=== PATIENT | male | born 1975 | race Caucasian/White ===

== ENCOUNTER 2023-12-04 10:15 | Outpatient (REF) | payer BC, SELFPAY ==
--- NOTE | ~2023-12-04 | XR_ITS ---
EXAMINATION: XR CHEST CLINICAL INFORMATION: Chronic cough. COMPARISON: 12/05/2021. TECHNIQUE: 2 views of the chest were obtained. FINDINGS: Lung volumes are low. There is no gross pneumothorax. Heart size within normal limits. Mild degenerative changes in the thoracic spine. No focal consolidation to suggest pneumonia. No pleural effusion. XR/XR chest 2V IMPRESSION: No evidence of pneumonia. Low lung volumes.
[2023-12-04 11:09] LABS: MANUAL DIFF FLAG NO
[2023-12-04 11:45] LABS: Basophils Percent Auto 0.6 % (0-2); Eosinophils Absolute Auto 0.2 X10*3/uL (0.0-0.4); Eosinophils Percent Auto 2.4 % (0-4); Hemoglobin 16.4 g/dl (14.0-18.0); Imm Gran Abs Auto 0.01 X10*3/uL (0.00-0.03); Imm Gran Pct Auto 0.2 % (0.0-0.4); Lymphocytes Absolute Auto 1.2 X10*3/uL (1.2-4.9); Lymphocytes Percent Auto 18.4 % (20-40); Mean Corpuscular HGB Conc 33.5 g/dl (31.0-36.0); Mean Corpuscular Hemoglobin 27.8 pg (27.0-33.0); Mean Corpuscular Volume 83.2 fL (80.0-98.0); Mean Platelet Volume 9.3 fL (9.4-12.4); Monocytes Absolute Auto 0.4 X10*3/uL (0.1-1.2); Monocytes Percent Auto 6.2 % (2-11); Neutrophils Absolute Auto 4.7 x10*3/uL (2.0-8.3); Neutrophils Percent Auto 72.2 % (45-73); Platelet Count 223 X10*3/uL (160-400); Red Blood Count 5.89 X10*6/uL (4.60-5.80); Red Cell Distribution Width 13.8 % (11.0-16.0); White Blood Count 6.6 X10*3/uL (4.8-10.8)
[2023-12-04 12:21] LABS: Erythrocyte Sedimentation Rate 23 MM/HR (0-15)
[2023-12-06 19:24] LABS: Immunoglobulin E 28 kU/L (<OR=114)
[2023-12-06 22:09] LABS: IgA 298 mg/dL (47-310); IgG 1200 mg/dL (600-1640); IgM 161 mg/dL (50-300)
[2023-12-11 13:37] LABS: Asperg fumigatus Precip Abs NEGATIVE (NEGATIVE); Micropoly faeni Abs NEGATIVE (NEGATIVE); Pigeon serum Abs NEGATIVE (NEGATIVE); Saccharo pora viridis Abs NEGATIVE (NEGATIVE); Thermo candidus Abs NEGATIVE (NEGATIVE); Thermoa vulgaris #1 NEGATIVE (NEGATIVE)
== END 2023-12-04 10:16 | disposition home or self-care (01) ==
LOC: HO.LAB 10:15
PROVIDERS: PCP Internal Medicine; Visit Provider Hospitalist
DX: R05.3 Chronic cough (principal); T78.40XA Allergy, unspecified, initial encounter; R91.8 Other nonspecific abnormal finding of lung field; J31.0 Chronic rhinitis
CPT/HCPCS: 36415; 71046; 82784; 82785; 85025; 85652; 86331; 86606; 86609

== ENCOUNTER 2023-12-04 10:15 | Outpatient (AMB) | payer BC, SELFPAY ==
[2023-12-04 10:21] VITALS: BP 124/78; PULSE 68; O2SAT 97; BMI 34.6
--- NOTE | 2023-12-04 10:21 | A.OFFVIS_ITS ---
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 The patient is a 48-year-old gentleman presenting with a chronic cough. The patient states that his cough started about 25 years ago. Typically a dry hacky cough. Throughout the years he is been evaluated for the cough without any significant resolution. He is tried nasal sprays for upper airway cough syndrome. He is tried Tessalon Perles without any significant relief. At times though depending on exposures and circumstances he may develop a flare up of his cough where he gets more congested with a deeper cough more in severity and frequency. The last time that it occurred over the fall the patient was placed on Pulmicort. Seems like it settle down the cough and the congestion. Ultimately his Pulmicort was increased further to 180. He recently had a viral syndrome and was not as bad. He also has a rescue inhaler uses as needed with partial response. Patient did have a chest x-ray which I personally reviewed bad in August 2023. Appeared that he has some bronchiectatic changes in the right lower lobe area. Also a bandlike atelectasis or opacity in the right upper lobe area. These abnormal findings that were not reported on the actual official reading. Therefore, have him repeat the x-ray to see if this areas have resolved. If the areas continue to be abnormal then will request a CT scan of the chest. In the meantime he has not had allergy testing or assessment of his immune system to make sure that we can try to find triggers for his chronic cough and likely a component of chronic bronchitis. The patient also has nasal congestion. The nasal sprays uses at times. He recently was prescribed a new spray. Based on his ongoing symptoms in the fact it has a component of and upper airway cough syndrome when start him on a 1st generation antihistamine along with Sudafed. He is going to monitor closely for any adverse effects specially high blood pressure. I am hoping that this will help him decrease his cough in order for him to break the cough cycle. The patient also needs to undergo pulmonary function studies to better address the question of underlying obstructive airway disease. Once he gets his blood work x-ray and PFTs he will follow-up again with pulmonary in order to review and to provide additional recommendations. [facility] Medical History (Updated 12/04/23 @ 13:13 by Negro Call MD) Chronic rhinitis Chronic cough Social History (Updated 12/04/23 @ 10:25 by BLADIMIR Alexandre) Patient Tobacco Use Status: Never used Tobacco Review of Systems Const Denies fever(s) ENT Reports nasal congestion, Reports nasal discharge and Reports post nasal drip Card Reports chest pain (right base) Resp Reports cough and Denies wheezing GI Reports no additional complaints Musc Reports no additional complaints Skin/Breast Denies rash Neuro Reports no additional complaints Ponce/Lymph Denies lymphadenopathy Aller/Immun Denies wheezing Physical Exam Vital Signs: Last Vital Signs Pulse 68 12/04/23 10:21 BP 124/78 12/04/23 10:21 Pulse Ox 97 12/04/23 10:21 Oxygen Delivery Method Room Air 12/04/23 10:21 BMI result Body Mass Index 34.6 Const General: comfortable HEENT General nose exam: Abnormal mucous membranes and turbinates present boggy Throat: Yes tonsils normal and Yes postnasal drainage Neck Neck: Yes supple Chest Chest palpation & inspection: normal inspection of the chest Resp Effort & Inspection: normal respiratory effort Auscultation: clear to auscultation bilaterally, no crackles, no rales, no rhonchi and no wheezes Cardio Heart sounds: S1 normal heart sound present and S2 normal heart sound present GI Palpation (GI): Soft to palpation Skin General skin exam: no rashes or lesions noted Extrem General: Yes no clubbing, cyanosis or edema Assessment & Plan Assessment & Plan (1) Chronic cough: Code(s): R05.3 - Chronic cough (2) Allergies: Code(s): T78.40XA - Allergy, unspecified, initial encounter Qualifiers: Encounter type: initial encounter Qualified Code(s): T78.40XA - Allergy, unspecified, initial encounter (3) Chronic rhinitis: Code(s): J31.0 - Chronic rhinitis Plan start Chlorphenaramine start pseudophed, monitor BP continue fluticasone nasal spray continue pulmicort SUHAIL as needed Bloodwork/allergy testing CXR, if abnormal will request a CT chest PFTs F/U in 2-3 months Orders: Orders XR chest 2V Today R05.3 - Chronic cough, T78.40XA - Allergy, unspecified, initial encounter Erythrocyte Sedimentation Rate Today R05.3 - Chronic cough, T78.40XA - Allergy, unspecified, initial encounter Complete Blood Count Auto Diff Today R05.3 - Chronic cough, T78.40XA - Allergy, unspecified, initial encounter Immunoglobulin E Today R05.3 - Chronic cough, T78.40XA - Allergy, unspecified, initial encounter Resp Allergy Profile Region I Today R05.3 - Chronic cough, R91.1 - Solitary pulmonary nodule, T78.40XA - Allergy, unspecified, initial encounter Hypersensitive Pneumonitis Prf Today R05.3 - Chronic cough, R91.8 - Other nonspecific abnormal finding of lung field, T78.40XA - Allergy, unspecified, initial encounter Immunoglobulins,IgG IgA IgM Today R05.3 - Chronic cough, T78.40XA - Allergy, unspecified, initial encounter Medications: New chlorpheniramine maleate 4 mg PO Q6H 30 days PRN 60 tabs 6RF cough pseudoephedrine HCl ER 120 mg PO Q12H 30 days 60 tabs 1RF Coding Level of Care Code New Pt Level 4 (32205) Diagnoses Chronic cough R05.3 Allergy, initial encounter T78.40XA Encounter type: initial encounter Chronic rhinitis J31.0 Time Spent (min) 40
== END 2023-12-04 10:54 | disposition home or self-care (01) ==
PROVIDERS: PCP Internal Medicine; Visit Provider Hospitalist
DX: R05.3 Chronic cough (principal); T78.40XA Allergy, unspecified, initial encounter; J31.0 Chronic rhinitis
CPT/HCPCS: 99204

== ENCOUNTER 2024-01-15 10:51 | Outpatient (REF) | payer BC, SELFPAY ==
[2024-01-15 08:26] VITALS: PULSE 82; RESP 16; O2SAT 100
--- NOTE | 2024-01-15 14:40 | PFT_ITS ---
Flows: FEV1: 89 % of predicted at 3.56 L FVC: 89 % of predicted at 4.50 L FEV1/FVC: 79 % Bronchodilator response: Absent Volumes: Total lung capacity: 87 % of predicted at 6.26 L Residual volume: 99 % of predicted at 1.76 L Slow vital capacity: 83 % of predicted at 4.50 L Expiratory reserve volume: 114 % of predicted at 1.69 L Diffusion capacity: Normal Impression: No obstructive or restrictive ventilatory defect. No bronchodilator response. Normal pulmonary function test. MTDD
== END 2024-01-15 10:52 | disposition home or self-care (01) ==
LOC: HO.RESP 10:51
PROVIDERS: PCP Nurse Practitioner; Visit Provider Hospitalist
DX: R06.00 Dyspnea, unspecified (principal); R05.3 Chronic cough
CPT/HCPCS: 94010; 94640; 94727; 94729

== ENCOUNTER → 2024-01-15 14:40 | Outpatient (BNV) | payer BC, SELFPAY | PROVIDERS: PCP Nurse Practitioner; Visit Provider Internal Medicine Pulmonary Disease | DX: R05.3 Chronic cough (principal) | CPT/HCPCS: 94060; 94727; 94729 ==

== ENCOUNTER 2024-02-12 08:45 | Outpatient (AMB) | payer BC, SELFPAY ==
[2024-02-12 08:52] VITALS: PULSE 69; O2SAT 98; BMI 34.4
--- NOTE | 2024-02-12 08:52 | MHC.OFFVIS ---
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 The patient states that his cough started about 25 years ago. Typically a dry hacky cough. Throughout the years he is been evaluated for the cough without any significant resolution. He is tried nasal sprays for upper airway cough syndrome. He is tried Tessalon Perles without any significant relief. At times though depending on exposures and circumstances he may develop a flare up of his cough where he gets more congested with a deeper cough more in severity and frequency. The last time that it occurred over the fall the patient was placed on Pulmicort. Seems like it settle down the cough and the congestion. Ultimately his Pulmicort was increased further to 180. He recently had a viral syndrome and was not as bad. He also has a rescue inhaler uses as needed with partial response. Patient did have a chest x-ray which I personally reviewed bad in August 2023. Appeared that he has some bronchiectatic changes in the right lower lobe area. Also a bandlike atelectasis or opacity in the right upper lobe area. These abnormal findings that were not reported on the actual official reading. Therefore, have him repeat the x-ray to see if this areas have resolved. If the areas continue to be abnormal then will request a CT scan of the chest. In the meantime he has not had allergy testing or assessment of his immune system to make sure that we can try to find triggers for his chronic cough and likely a component of chronic bronchitis. The patient also has nasal congestion. The nasal sprays uses at times. He recently was prescribed a new spray. Based on his ongoing symptoms in the fact it has a component of and upper airway cough syndrome when start him on a 1st generation antihistamine along with Sudafed. He is going to monitor closely for any adverse effects specially high blood pressure. I am hoping that this will help him decrease his cough in order for him to break the cough cycle. The patient also needs to undergo pulmonary function studies to better address the question of underlying obstructive airway disease. Once he gets his blood work x-ray and PFTs he will follow-up again with pulmonary in order to review and to provide additional recommendations. 02/12/2024 the patient is here for a pulmonary follow-up visit. Overall he is doing okay. Still continues with a cough. Slightly improved. Nonproductive in nature. Denies any significant shortness of breath. Denies any night sweats. He did have a chest x-ray demonstrating low lung volumes with some crowding of the vessels and some atelectasis. In addition to that he had PFTs. He had blood work without any significant explanation for the underlying cough. Will go ahead and request a CT scan of the chest at this time. The patient will continue with the current respiratory therapy. Follow-up in 6 months. [facility] Medical History (Updated 02/12/24 @ 09:10 by Negro Call MD) Standard chest x-ray abnormal Chronic rhinitis Chronic cough Social History (Updated 12/04/23 @ 10:25 by BLADIMIR Alexandre) Patient Tobacco Use Status: Never used Tobacco Review of Systems Const Denies fever(s) ENT Reports nasal congestion, Reports nasal discharge and Reports post nasal drip Card Reports chest pain (right base) Resp Reports cough and Denies wheezing GI Reports no additional complaints Musc Reports no additional complaints Skin/Breast Denies rash Neuro Reports no additional complaints Ponce/Lymph Denies lymphadenopathy Aller/Immun Denies wheezing Physical Exam Const General: comfortable HEENT General nose exam: Abnormal mucous membranes and turbinates present boggy Throat: Yes tonsils normal and Yes postnasal drainage Neck Neck: Yes supple Chest Chest palpation & inspection: normal inspection of the chest Resp Effort & Inspection: normal respiratory effort Auscultation: no crackles, no rales, no rhonchi, no wheezes and diminished lung sounds Cardio Heart sounds: S1 normal heart sound present and S2 normal heart sound present GI Palpation (GI): Soft to palpation Skin General skin exam: no rashes or lesions noted Extrem General: Yes no clubbing, cyanosis or edema Assessment & Plan Assessment & Plan (1) Chronic cough: Code(s): R05.3 - Chronic cough Category: Medical (2) Allergies: Code(s): T78.40XA - Allergy, unspecified, initial encounter Category: Medical Qualifiers: Encounter type: initial encounter Qualified Code(s): T78.40XA - Allergy, unspecified, initial encounter (3) Chronic rhinitis: Code(s): J31.0 - Chronic rhinitis Category: Medical (4) Standard chest x-ray abnormal: Code(s): R93.89 - Abnormal findings on diagnostic imaging of other specified body structures Category: Medical Plan continue Chlorphenaramine as needed continue pseudophed, monitor BP continue fluticasone nasal spray continue pulmicort SUHAIL as needed CT chest F/U in 6-8 Orders: Orders CT chest wo IV con Today R05.3 - Chronic cough, R93.89 - Abnormal findings on diagnostic imaging of other specified body structures Coding Level of Care Code Est Pt Level 4 (77709) Diagnoses Chronic cough R05.3 Allergy, initial encounter T78.40XA Encounter type: initial encounter Chronic rhinitis J31.0 Standard chest x-ray abnormal R93.89 Time Spent (min) 17
== END 2024-02-12 09:10 | disposition home or self-care (01) ==
PROVIDERS: PCP Internal Medicine; Visit Provider Hospitalist
DX: R05.3 Chronic cough (principal); T78.40XA Allergy, unspecified, initial encounter; J31.0 Chronic rhinitis; R93.89 Abnormal findings on diagnostic imaging of other specified body structures
CPT/HCPCS: 99214

== ENCOUNTER → 2024-02-12 08:45 | Outpatient (BNVA) | payer BC, SELFPAY | PROVIDERS: PCP Internal Medicine; Visit Provider Hospitalist ==

== ENCOUNTER 2024-03-25 07:10 | Outpatient (REF) | payer BC, SELFPAY ==
--- NOTE | ~2024-03-25 | CT_ITS ---
EXAMINATION: CT CHEST WITHOUT CONTRAST CLINICAL INFORMATION: Chronic cough. COMPARISON: No prior CT available. Chest x-ray dated 12/04/2023. TECHNIQUE: Multidetector volumetric CT imaging of the chest was done. Axial MIP volume rendering provided. Sagittal and coronal reformatted images were obtained. This CT examination was performed using dose optimization techniques as appropriate, variously including the following: *Automated exposure control *Adjustment of mA and/or kV according to patient size (this includes techniques or standardized protocols for targeted exams where dose is matched to indication/reason for exam; i.e. extremities or head) *Use of iterative reconstruction technique DLP: 243 mGy-cm FINDINGS: QUOTER: Normal. LUNGS: -The lungs are clear bilaterally without evidence of consolidation or groundglass opacities. -Trachea and bronchi are normal in appearance. There is no bronchial wall thickening or endobronchial filling defect. Small airways are normal. -There are no suspicious pulmonary nodules identified. -No evidence of interstitial lung disease. PLEURA: There is no pleural effusion. No pleural mass or thickening. MEDIASTINUM: -Thyroid images normally. -Aorta normal in caliber and course. No significant atheromatous calcification present. Great vessels demonstrate a two-vessel branching pattern and are otherwise normal. -Main pulmonary artery is normal in size. -Heart size is normal. There is no pericardial effusion. -The esophagus is normal in appearance. There may be a tiny type I hiatus hernia although this is not definitive. -There is no adenopathy. CORONARY ARTERY CALCIFICATION: None visualized on this study. AXILLA/CHEST WALL: No lymphadenopathy. Normal. UPPER ABDOMEN: Unremarkable. OSSEOUS STRUCTURES: No suspicious lytic or blastic bone lesions. Minimal spinal degenerative changes. Mild arthritis in the sternoclavicular joints bilaterally. Bony mineralization appears normal. CT/CT chest wo IV con IMPRESSION: 1. No active pulmonary disease or evidence of interstitial lung disease. 2. No bronchial abnormalities. Airways appear normal. 3. No suspicious pulmonary nodules. 4. Normal heart and mediastinum. 5. Ancillary findings as discussed in the body of the report. Fleischner guidelines were followed.
== END 2024-03-25 07:11 | disposition home or self-care (01) ==
LOC: HO.CT 07:10
PROVIDERS: PCP Registered Nurse; Visit Provider Hospitalist
DX: R05.3 Chronic cough (principal); R93.89 Abnormal findings on diagnostic imaging of other specified body structures
CPT/HCPCS: 71250

== ENCOUNTER → 2024-03-25 07:11 | Outpatient (BNV) | payer BC, SELFPAY | PROVIDERS: PCP Registered Nurse; Visit Provider Radiology Diagnostic Radiology | DX: R05.3 Chronic cough (principal) | CPT/HCPCS: 71250 ==

== ENCOUNTER 2024-08-19 08:30 | Outpatient (AMB) | payer BC, SELFPAY ==
--- NOTE | 2024-08-19 08:31 | MHC.OFFVIS ---
Vital Signs 08/19/24 08:35 Height 5 ft 10 in Weight 235 lb 14.314 oz BMI 33.8 BP 124/70 Blood Pressure Location Lt brachial Position Sitting Pulse 85 Pulse Source Pulse Oximeter Pulse Oximetry (%) 99 Oxygen Delivery Method Room Air Intake Visit Reasons: Chronic Cough Technical Designer Required: No Data Management Associate: Data Management Associate offered & declined Accompanied by: Self / Same As Patient Allergies No Known Allergies Allergy (Unverified 08/19/24 08:38) Medication List - Last Reconciled 08/19/24 by Trang Renee LPN albuterol sulfate 90 mcg/actuation inhalation atorvastatin 20 mg PO DAILY budesonide 90 mcg/actuation (Pulmicort Flexhaler) 0 inhalations inhalation chlorpheniramine maleate 4 mg PO Q6H PRN 30 days escitalopram oxalate 20 mg PO DAILY montelukast 10 mg PO DAILY omeprazole 40 mg PO DAILY pseudoephedrine HCl ER 120 mg PO Q12H 30 days HPI Comments Details: The patient is a 49-year-old gentleman presenting with a chronic cough. The patient states that his cough started about 25 years ago. Typically a dry hacky cough. Throughout the years he is been evaluated for the cough without any significant resolution. He is tried nasal sprays for upper airway cough syndrome. He is tried Tessalon Perles without any significant relief. At times though depending on exposures and circumstances he may develop a flare up of his cough where he gets more congested with a deeper cough more in severity and frequency. The last time that it occurred over the fall the patient was placed on Pulmicort. Seems like it settle down the cough and the congestion. Ultimately his Pulmicort was increased further to 180. He recently had a viral syndrome and was not as bad. He also has a rescue inhaler uses as needed with partial response. Patient did have a chest x-ray which I personally reviewed bad in August 2023. Appeared that he has some bronchiectatic changes in the right lower lobe area. Also a bandlike atelectasis or opacity in the right upper lobe area. These abnormal findings that were not reported on the actual official reading. Therefore, have him repeat the x-ray to see if this areas have resolved. If the areas continue to be abnormal then will request a CT scan of the chest. In the meantime he has not had allergy testing or assessment of his immune system to make sure that we can try to find triggers for his chronic cough and likely a component of chronic bronchitis. The patient also has nasal congestion. The nasal sprays uses at times. He recently was prescribed a new spray. Based on his ongoing symptoms in the fact it has a component of and upper airway cough syndrome when start him on a 1st generation antihistamine along with Sudafed. He is going to monitor closely for any adverse effects specially high blood pressure. I am hoping that this will help him decrease his cough in order for him to break the cough cycle. The patient also needs to undergo pulmonary function studies to better address the question of underlying obstructive airway disease. Once he gets his blood work x-ray and PFTs he will follow-up again with pulmonary in order to review and to provide additional recommendations. 02/12/2024 the patient is here for a pulmonary follow-up visit. Overall he is doing okay. Still continues with a cough. Slightly improved. Nonproductive in nature. Denies any significant shortness of breath. Denies any night sweats. He did have a chest x-ray demonstrating low lung volumes with some crowding of the vessels and some atelectasis. In addition to that he had PFTs. He had blood work without any significant explanation for the underlying cough. Will go ahead and request a CT scan of the chest at this time. The patient will continue with the current respiratory therapy. Follow-up in 6 months. 08/19/2024 the patient is here for a pulmonary follow-up visit. The patient overall has been doing very well. The cough significantly better. We did review his CT scan of chest and also has PFTs. All is within normal limits. The patient did take the medication did help him but he does not require the inhalers any longer. He does have him to use as needed. The antihistamines as well. The patient does not have any complaints. We did review the CT scan in appears that he has a small hiatal hernia. We did talk about the reflux diet and this should also help. Otherwise patient is doing well will can follow-up in a year's time or as needed. No other issues at this time [facility] Medical History (Updated 02/12/24 @ 09:10 by Negro Call MD) Standard chest x-ray abnormal Chronic rhinitis Chronic cough Social History (Updated 08/19/24 @ 08:39 by Trang Renee LPN) Patient Tobacco Use Status: Never used Tobacco Review of Systems Const Denies fever(s) ENT Reports nasal congestion, Reports nasal discharge and Reports post nasal drip Card Denies chest pain (right base) Resp Reports cough and Denies wheezing GI Reports no additional complaints Musc Reports no additional complaints Skin/Breast Denies rash Neuro Reports no additional complaints Ponce/Lymph Denies lymphadenopathy Aller/Immun Denies wheezing Physical Exam Vital Signs: Last Vital Signs Pulse 85 08/19/24 08:35 BP 124/70 08/19/24 08:35 Pulse Ox 99 08/19/24 08:35 Oxygen Delivery Method Room Air 08/19/24 08:35 BMI result Body Mass Index 33.8 Const General: comfortable HEENT General nose exam: Abnormal mucous membranes and turbinates present boggy Throat: Yes tonsils normal and Yes postnasal drainage Neck Neck: Yes supple Chest Chest palpation & inspection: normal inspection of the chest Resp Effort & Inspection: normal respiratory effort Auscultation: clear to auscultation bilaterally, no crackles, no rales, no rhonchi and no wheezes Cardio Heart sounds: S1 normal heart sound present and S2 normal heart sound present GI Palpation (GI): Soft to palpation Skin General skin exam: no rashes or lesions noted Extrem General: Yes no clubbing, cyanosis or edema Results Reviewed Results Reviewed: [place] [id number] CT Scan Report Signed Patient: Cheng Barrett MR#: [id number] : 1975 Acct:[id number] Age/Sex: 48 / M ADM Date: 03/25/24 Loc: HO.CT Attending Dr: Negro Call MD Ordering Physician: Negro Call MD Date of Service: 03/25/24 Procedure(s): CT chest wo IV con Accession Number(s): [id number] cc: Malou Kaur DNP; Negro Call MD~ EXAMINATION: CT CHEST WITHOUT CONTRAST CLINICAL INFORMATION: Chronic cough. COMPARISON: No prior CT available. Chest x-ray dated 12/04/2023. TECHNIQUE: Multidetector volumetric CT imaging of the chest was done. Axial MIP volume rendering provided. Sagittal and coronal reformatted images were obtained. This CT examination was performed using dose optimization techniques as appropriate, variously including the following: *Automated exposure control *Adjustment of mA and/or kV according to patient size (this includes techniques or standardized protocols for targeted exams where dose is matched to indication/reason for exam; i.e. 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 LUNGS: -The lungs are clear bilaterally without evidence of consolidation or groundglass opacities. -Trachea and bronchi are normal in appearance. There is no bronchial wall thickening or endobronchial filling defect. Small airways are normal. -There are no suspicious pulmonary nodules identified. -No evidence of interstitial lung disease. PLEURA: There is no pleural effusion. No pleural mass or thickening. MEDIASTINUM: -Thyroid images normally. -Aorta normal in caliber and course. No significant atheromatous calcification present. Great vessels demonstrate a two-vessel branching pattern and are otherwise normal. -Main pulmonary artery is normal in size. -Heart size is normal. There is no pericardial effusion. -The esophagus is normal in appearance. There may be a tiny type I hiatus hernia although this is not definitive. -There is no adenopathy. CORONARY ARTERY CALCIFICATION: None visualized on this study. AXILLA/CHEST WALL: No lymphadenopathy. Normal. UPPER ABDOMEN: Unremarkable. OSSEOUS STRUCTURES: No suspicious lytic or blastic bone lesions. Minimal spinal degenerative changes. Mild arthritis in the sternoclavicular joints bilaterally. Bony mineralization appears normal. CT/CT chest wo IV con IMPRESSION: 1. No active pulmonary disease or evidence of interstitial lung disease. 2. No bronchial abnormalities. Airways appear normal. 3. No suspicious pulmonary nodules. 4. Normal heart and mediastinum. 5. Ancillary findings as discussed in the body of the report. Fleischner guidelines were followed. 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: Assessment & Plan Assessment & Plan (1) Chronic cough: Code(s): R05.3 - Chronic cough Category: Medical (2) Allergies: Code(s): T78.40XA - Allergy, unspecified, initial encounter Category: Medical Qualifiers: Encounter type: initial encounter Qualified Code(s): T78.40XA - Allergy, unspecified, initial encounter (3) Chronic rhinitis: Code(s): J31.0 - Chronic rhinitis Category: Medical Plan continue Chlorphenaramine as needed continue pseudophed as needed continue fluticasone nasal spray continue pulmicort SUHAIL as needed F/U in 12 Coding Level of Care Code Est Pt Level 4 (35023) Diagnoses Chronic cough R05.3 Allergy, initial encounter T78.40XA Encounter type: initial encounter Chronic rhinitis J31.0 Time Spent (min) 16
[2024-08-19 08:35] VITALS: BP 124/70; PULSE 85; O2SAT 99; BMI 33.8
== END 2024-08-19 08:56 | disposition home or self-care (01) ==
PROVIDERS: PCP Registered Nurse; Visit Provider Hospitalist
DX: R05.3 Chronic cough (principal); T78.40XA Allergy, unspecified, initial encounter; J31.0 Chronic rhinitis
CPT/HCPCS: 99214